=== PATIENT | male | born 2000 | race Caucasian/White ===

== ENCOUNTER 2023-09-30 23:26 | Emergency (ER) | payer OTHER ==
[~2023-09-30] VITALS: Ht 175.3 cm; Wt 118.2 kg
[2023-10-01 03:00] VITALS: BP 129/68; PULSE 68; RESP 16; TEMP 98.3
[2023-10-01] MEDS: CLINDAMYCIN HCL 150 MG CAPSULE PO ONE (03:05)
[2023-10-01] MEDS: HYDROCODONE/ACETAMINOPHEN 5-325 MG TABLET PO ONE (03:05)
[2023-10-01] MEDS: KETOROLAC TROMETHAMINE 30 MG/ML VIAL IM ONE (03:06)
[2023-10-01] MEDS ORDERED: TRAM-559 PO (03:11)
[2023-10-01] MEDS ORDERED: CLIN-142 PO (03:11)
== END 2023-10-01 03:00 | disposition home or self-care (01) ==
LOC: EMS 23:28
DX: K02.9 Dental caries, unspecified (principal); G43.909 Migraine, unspecified, not intractable, without status migrainosus
CPT/HCPCS: 99283; 96372; J1885